=== PATIENT | male | born 1975 | race Caucasian/White ===

== ENCOUNTER 2019-12-18 18:16 | Emergency (ER) | payer OTHER ==
[2019-12-18] MEDS ORDERED: PERCOCET TABLET 5/325MG PO ONE (18:43)
[2019-12-18 18:45] VITALS: BP 135/87
--- NOTE | 2019-12-18 18:58 | ERPHSYRPT ---
- History of Present Illness Time Seen by Provider: 12/18/19 18:28 Source: patient Exam Limitations: no limitations Patient Subjective Stated Complaint: pt states he's foot has been hurting for a week with no injury but today he was getting in boat and states he heard 3 pops in hes foot and now cant walk Triage Nursing Assessment: pt arrived per wc with mask on, unable to bear wt on foot, was able to get in bed, no swelling or brusing noted Physician History: 44 years old morbidly obese male with history of diabetes mellitus, hypertension presented in the ER with chief complaint of left foot pain. Patient reports having pain for the last 2 to 3 weeks and today was getting into the boat and hurt popping sound in the medial aspect of foot prior to arrival and is having difficulty putting any weight on it. Also report gradually developing swelling. Pain is moderate to severe, sharp, aggravated with weightbearing and partial relief with being still. Denies any direct trauma or injury. Allergies/Adverse Reactions: No Known Drug Allergies Allergy (Unverified 12/18/19 18:45) Home Medications: Fenofibrate 1 ea DAILY 12/18/19 [History] Losartan Potassium 1 ea DAILY 12/18/19 [History] Montelukast Sodium 1 ea DAILY 12/18/19 [History] Hx Influenza Vaccination/Date Given: No Hx Pneumococcal Vaccination/Date Given: No Immunizations Up to Date: Yes Travel Risk - International Travel Have you traveled outside of the country in past 3 weeks: No - Coronavirus Screening Are you exhibiting any of the following symptoms?: No Close contact with a COVID-19 positive Pt in past 14-21 Days: No - Review of Systems Constitutional: No Symptoms Eyes: No Symptoms Ears, Nose, & Throat: No Symptoms Respiratory: No Symptoms Cardiac: No Symptoms Abdominal/Gastrointestinal: No Symptoms Musculoskeletal: Joint Pain, Joint Swelling Skin: No Symptoms Neurological: No Symptoms Psychological: No Symptoms Endocrine: No Symptoms Hematologic/Lymphatic: No Symptoms Immunological/Allergic: No Symptoms - Past Medical History Pertinent Past Medical History: Yes Cardiac History: High Cholesterol, Hypertension Endocrine Medical History: Diabetes Type II - Past Surgical History Past Surgical History: Yes Other Surgical History: cysts removed - Social History Smoking Status: Current every day smoker Exposure to second hand smoke: Yes Drug Use: none Patient Lives Alone: Yes - Nursing Vital Signs Nursing Vital Signs: Initial Vital Signs Temperature 98.2 F 12/18/19 18:38 Pulse Rate 98 H 12/18/19 18:38 Respiratory Rate 18 12/18/19 18:38 Blood Pressure 135/87 12/18/19 18:38 O2 Sat by Pulse Oximetry 96 12/18/19 18:38 Pain Scale Pain Intensity 8 - Physical Exam General Appearance: no apparent distress Neck Exam: normal inspection, supple, full range of motion Cardiovascular/Respiratory Exam: normal breath sounds, regular rate/rhythm Ankle Exam: bilateral ankle: non-tender, normal inspection, normal range of motion Foot Exam: left foot: bone tenderness (Base of fifth metatarsal, medial aspect of calcaneus, dorsum of foot), limited range of motion, pain, soft tissue tenderness, swelling Neuro/Tendon Exam: normal sensation Mental Status Exam: alert, oriented x 3, cooperative Skin Exam: normal color SpO2 Interpretation: normal SpO2: 96 O2 Delivery: Room Air Ordered Tests: Active Orders 24 hr Category Date Time Status FOOT (MINIMUM 3 VIEWS) Stat Exams 12/18/19 Ordered Medication Summary Discontinued Medications Generic Name Dose Route Start Last Admin Trade Name Espinoza PRN Reason Stop Dose Admin Oxycodone/Acetaminophen 2 tab 12/18/19 18:43 12/18/19 19:21 Percocet Tablet 5/325mg PO 12/18/19 18:44 2 tab STAT ONE Administration Oxycodone/Acetaminophen Confirm 12/18/19 19:20 Percocet Tablet 5/325mg Administered 12/18/19 19:21 Dose 2 tab .ROUTE .STK-MED ONE - Progress Progress: pain not gone completely Progress Note: 12/18/19 19:27 44 years old is evaluated for left foot pain. He is given Percocet for symptomatic relief. I have obtained x-rays but could not see any obvious fracture. Official read is pending. Will place in long walking boot and weightbearing as tolerated. Recommended outpatient podiatry follow-up. Counseled pt/family regarding: diagnosis, need for follow-up, rad results - Departure Departure Disposition: Home Clinical Impression: Sprain of left foot Qualifiers: Encounter type: initial encounter Qualified Code(s): S93.602A - Unspecified sprain of left foot, initial encounter Condition: Stable Critical Care Time: No Referrals: DOLLY PADILLA [Primary Care Provider] - Follow Up with PCP/3 days DESTINI HERNANDES NP [NON-STAFF PHY W/O PRIVILEGES] - Follow Up with PCP/3 days Instructions: Foot Sprain (DC) Additional Instructions: Weightbearing as tolerated. Follow-up with Ortho/podiatry for reevaluation. Return to ER for any worsening. Take pain medications as needed. Prescriptions: Hydrocodone/APAP 5/325 [[place] 5/325 mg] 1 each PO Q6H PRN PRN #12 tablet MDD 4 PRN Reason: Pain
[2019-12-18] MEDS ORDERED: PERCOCET TABLET 5/325MG ONE (19:20)
[2019-12-18 20:26] VITALS: PULSE 84; O2SAT 97
--- NOTE | 2019-12-18 22:28 | XRAY ---
Indication: Pain. Comparison: None 3 nonweightbearing views left foot demonstrates small posterior/tiny plantar heel spurs, small spurring base of the 1st proximal phalanx laterally, and talonavicular accessory ossicle. No other bony, articular, or soft tissue abnormalities
== END 2019-12-18 20:25 | disposition home or self-care (01) ==
LOC: ED 18:16
DX: S93.602A Unspecified sprain of left foot, initial encounter (principal); M79.89 Other specified soft tissue disorders; X50.0XXA Overexertion from strenuous movement or load, initial encounter; Y93.9 Activity, unspecified; Y92.9 Unspecified place or not applicable
CPT/HCPCS: 73630; 99283; L4386; A9270-GY